=== PATIENT | female | born 1945 | race African-American/Black ===

== ENCOUNTER 2020-07-03 13:35 | Outpatient (CLI) | payer MEDICARE, OTHER | END 2020-07-03 13:36 | disposition home or self-care (01) | LOC: CSHCP 13:35 | PROVIDERS: ATTEND Internal Medicine Critical Care Medicine | DX: J44.9 Chronic obstructive pulmonary disease, unspecified (principal); R94.2 Abnormal results of pulmonary function studies | CPT/HCPCS: 94060; 94726; 94729; 94760 ==